=== PATIENT | female | born 1995 | race Caucasian/White ===

== ENCOUNTER → 2017-01-29 | Outpatient (CLI) | payer OTHER ==
[2017-01-29 13:38] LABS: ASPARTATE AMINO TRANSFERASE 21 U/L (15-37); BLOOD UREA NITROGEN 8 mg/dL (7-18)
[2017-01-30 08:07] LABS: TESTOSTERONE TOTAL 60 ng/dL (8-48)
== END | disposition home or self-care (01) ==
LOC: LAB 11:25
PROVIDERS: ATTEND Obstetrics & Gynecology
DX: Z13.228 Encounter for screening for other metabolic disorders (principal); E03.9 Hypothyroidism, unspecified; E34.9 Endocrine disorder, unspecified
CPT/HCPCS: 36415; 80053; 81001; 84403; 84443; 84702; 87086